=== PATIENT | female | born 1990 | race Caucasian/White ===

== ENCOUNTER 2018-08-06 08:58 | Inpatient (IN) ==
[2018-08-06] MEDS ORDERED: Morphine Sulfate PF Inj 5 MG/10 ML Ampul ONE (09:24)
[2018-08-06] MEDS ORDERED: fentaNYL Citrate Inj 100 MCG/2 ML Ampul ONE (09:24)
[2018-08-06] MEDS ORDERED: Citric Acid/Sodium Citrate Liq 30 ML UDC PO SCH (09:30)
[2018-08-06] MEDS ORDERED: ceFAZolin 2 GM Premix Inj 2 GM/50 ML PIGGYBACK IV.SIG PRN (09:30)
--- NOTE | 2018-08-06 09:47 | P.HPOB ---
History of Present Illness Primary Care Physician: No Primary Care Physician [facility] History of Present Illness: 28 y/o F, at 39wks1, hx of c/s x 2, presents for scheduled repeat c/s. Patient denies any contractions, leakage of fluid, vaginal bleeding. OB history: Uncomplicated , blood type O+, hemoglobin 11.7, last ultrasound 2 weeks agoestimated weight around 6 pounds Previous OB: x1 x1stat for nonreassuring tracing [id number] Med history: None Surgical history: None Meds: vitamins Allergies: None - Inpatient Certification I certify that the inpatient services were ordered in accordance with Medicare regulations governing the order. This includes certification that hospital inpatient services are reasonable and necessary and in the case of services not specified as inpatient-only under 42 CFR 419.22(n), that they are appropriately provided as inpatient services in accordance to with the 2-midnight benchmark under 43 CFR 412.3(e) Estimated Total Length of Stay (Days): 2 Plans for Post Hospital Care: Home Review of Systems All other systems reviewed negative except as stated in HPI PMFSH - Tobacco History Smoking Status: Former smoker Tobacco Type: Cigarettes - Alcohol History How Often Do You Have a Drink Containing Alcohol: Never - Travel History History of Recent Travel: No Medications and Allergies Active Medications: Active Medications Citric Acid/Sodium Citrate (Sodium Citrate/Citric Acid Liq) 30 ml PO [employer] T[employer]OR SLOANE Stop: 08/10/18 09:29 Cefazolin Sodium/Dextrose (Ancef 2 Gm Premix Inj) 2 gm in 50 mls @ 100 mls/hr IV.SIG [employer] TUTOR PRN PRN Reason: surgery Stop: 08/10/18 09:29 Lactated Ringer's (Lr 1000 Ml Inj) 1,000 mls @ 150 mls/hr IV.CONT .Q6H40M SLOANE Lactated Ringer's (Lr 1000 Ml Inj) 1,000 mls @ 2,000 mls/hr IV.SIG .Q30M ONE Stop: 08/06/18 09:59 Allergies Allergy/AdvReac Type Severity Reaction Status Date / Time No Known Allergies Allergy Uncoded 04/06/12 23:28 Exam Vital signs: Vital Signs 08/06/18 09:21 08/06/18 09:34 Temperature 98.7 F Pulse Rate 77 Respiratory Rate 16 Blood Pressure 114/61 Narrative: GENERAL: Well-nourished, well-developed patient. SKIN: Warm and dry. HEAD: Normocephalic and atraumatic. EYES: No scleral icterus. No injection or drainage. ENT: No nasal drainage noted. Mucous membranes pink. Airway patent. NECK: Supple, trachea midline. No JVD. CARDIOVASCULAR: Regular rate and rhythm without murmurs, gallops, or rubs. RESPIRATORY: Breath sounds equal bilaterally. No accessory muscle use. ABDOMEN/GI: Abdomen soft, non-tender, bowel sounds present, no rebound, no guarding Gravid to 40 weeks size Fundal Height: 40 GENITOURINARY: External Genitalia: intact and normal in appearance FHT's: baseline 130, +accels, variable x 2, will continue to monitor Irregular cxns on toco EXTREMITIES: No cyanosis or edema. BACK: Nontender without obvious deformity. No CVA tenderness. NEUROLOGICAL: Awake and alert. Motor and sensory grossly within normal limits. Five out of 5 muscle strength in all muscle groups. Normal speech. Results - Labs CBC & Chem 7: 08/06/18 09:25 Caprini VTE Risk Assessment Caprini VTE Risk Assessment: No/Low Risk (score <= 1) Caprini Risk Assessment Model: Point Value = 1 Point Value = 2 Point Value = 3 Point Value = 5 Age 41-60 Minor surgery BMI > 25 kg/m2 Swollen legs Varicose veins or History of unexplained or recurrent spontaneous Oral contraceptives or hormone replacement Sepsis (< 1 month) Serious lung disease, including pneumonia (< 1 month) Abnormal pulmonary function Acute myocardial infarction Congestive heart failure (< 1 month) History of inflammatory bowel disease Medical patient at bed rest Age 61-74 Arthroscopic surgery Major open surgery (> 45 min) Laparoscopic surgery (> 45 min) Malignancy Confined to bed (> 72 hours) Immobilizing plaster cast Central venous access Age >= 75 History of VTE Family history of VTE Factor V Leiden Prothrombin [id number] Lupus anticoagulant Anticardiolipin antibodies Elevated serum homocysteine Heparin-induced thrombocytopenia Other congenital or acquired thrombophilia Stroke (< 1 month) Elective arthroplasty Hip, pelvis, or leg fracture Acute spinal cord injury (< 1 month) Prophylaxis Regimen: Total Risk Factor Score Risk Level Prophylaxis Regimen 0-1 Low Early ambulation 2 Moderate Order ONE of the following: *Sequential Compression Device (SCD) *Heparin 5000 units SQ BID 3-4 Higher Order ONE of the following medications: *Heparin 5000 units SQ TID *Enoxaparin/Lovenox 40 mg SQ daily (WT < 150 kg, CrCl > 30 mL/min) *Enoxaparin/Lovenox 30 mg SQ daily (WT < 150 kg, CrCl > 10-29 mL/min) *Enoxaparin/Lovenox 30 mg SQ BID (WT < 150 kg, CrCl > 30 mL/min) AND/OR *Sequential Compression Device (SCD) 5 or more Highest Order ONE of the following medications: *Heparin 5000 units SQ TID (Preferred with Epidurals) *Enoxaparin/Lovenox 40 mg SQ daily (WT < 150 kg, CrCl > 30 mL/min) *Enoxaparin/Lovenox 30 mg SQ daily (WT < 150 kg, CrCl > 10-29 mL/min) *Enoxaparin/Lovenox 30 mg SQ BID (WT < 150 kg, CrCl > 30 mL/min) AND *Sequential Compression Device (SCD) Assessment and Plan - Diagnosis (1) 39 weeks gestation of Code(s): Z3A.39 - 39 weeks gestation of Status: Acute Plan: 28 y/o F, at 39wks1, hx of c/s x 2, presents for scheduled repeat c/s. -Hemoglobin 11.7 -Preoperative orders entered -Tracing reviewed, will continue to monitor -N.p.o. -preop Ancef 2g (2) Previous delivery affecting Code(s): O34.219 - Maternal care for unspecified type scar from previous delivery Status: Acute
[2018-08-06 09:50] LABS: Baso % (Auto) 0.2 % (0.0-2.0); Eos # (Auto) 0.1 th/mm3 (0.0-0.4); Eos % (Auto) 0.5 % (0.0-4.0); Hemoglobin 12.5 gm/dL (11.6-15.3); Lymph # (Auto) 2.9 th/mm3 (1.0-4.8); Lymph % (Auto) 24.8 % (9.0-44.0); Mean Corpuscular Hemoglobin 34.7 pg (27.0-34.0); Mean Corpuscular Volume 94.4 fL (80.0-100.0); Mean Platelet Volume 8.6 fL (7.0-11.0); Mono # (Auto) 0.8 th/mm3 (0.0-0.9); Mono % (Auto) 6.6 % (0.0-8.0); Neut % (Auto) 67.9 % (16.0-70.0); Platelet Count 270 th/mm3 (150-450); Red Cell Distribution Width 13.4 % (11.6-17.2); White Blood Count 11.7 th/mm3 (4.0-11.0)
[2018-08-06 09:59] LABS: Mean Corpuscular HGB Conc 36.8 % (32.0-36.0)
[2018-08-06 10:02] LABS: Bacteria,Urine Rare /hpf; Bilirubin,Urine Negative (Negative); Clarity,Urine Clear (Clear); Color,Urine Straw (Yellw/Straw); Glucose,Urine (UA) Negative (Negative); Leukocyte Esterase,Urine Negative (Negative); Nitrite,Urine Negative (Negative); Specific Gravity,Urine 1.004 (1.002-1.035)
[2018-08-06 10:06] LABS: Amphetamine Screen,Urine Neg (Neg); Barbiturate Screen,Urine Neg (Neg); Cannabinoid Screen,Urine Pos (Neg); Cocaine Screen,Urine Neg (Neg)
[2018-08-06 10:07] LABS: Opiate Screen,Urine Neg (Neg)
[2018-08-06 11:13] LABS: Eosinophils 1 % (0-4); Lymphocytes 23 % (9-44); Monocytes 2 % (0-8); Platelet Estimate Normal (Normal); Platelet Morphology Normal (Normal); Promyelocyte 1 % (0-0)
[2018-08-06] MEDS ORDERED: Acetaminophen 325 MG Tablet PO PRN (11:54)
[2018-08-06] MEDS ORDERED: Oxytocin 30 Units/500ml Premix 30 UNITS/500 ML BAG IV.SIG ONE (11:54)
[2018-08-06] MEDS ORDERED: Oxytocin 30 Units/500ml Premix 30 UNITS/500 ML BAG ONE (13:00)
--- NOTE | 2018-08-06 13:00 | P.OP ---
- Preoperative Diagnosis (1) 39 weeks gestation of (2) Previous delivery affecting - Postoperative Diagnosis (1) 39 weeks gestation of (2) Previous delivery affecting Date of procedure: 08/06/18 Procedure: Lower uterine segment transverse section repeat Anesthesia: spinal Surgeon: Viviane Araiza MD Estimated blood loss (mL): 500 Operation and Findings: Patient counseled on alternatives benefits complications including but not limited to permanent injury of the bowel bladder nerve blood vessel ureters any structures in the abdomen pelvis infection hemorrhage morbidity mortality related surgery under anesthesia related procedures even remote possibility of risk of injury patient expressed verbal understanding. Patient requested a silvia Intra-Op discussed with patient the complications associated and she agrees and decided to defer. Subsequently patient was taken to the OR after informed consent obtained timeout was called preop antibiotics given spinal analgesia was placed which was found to be adequate prepped and draped in normal sterile fashion . Pfannenstiel skin incision was made through the previous incision carried down to the underlying layer of fascia which was incised in the midline dissected laterally digitally superior S of the fascia was grasped to Ramana clamps x2 dissected off from the underlying rectus muscle sharply with curved Hernandez scissors the same was performed to the inferior aspect of the fascia with care to avoid the bladder. Rectus muscle attempt to separate noted to be densely fused subsequently identified with a hemostat and through the midline the rectus muscle proceeded superiorly with Metzenbaum scissors with care to avoid the vasculature once entered entry into the peritoneum with care to avoid the bladder. The vesicouterine peritoneum was noted to be densely adherent to the lower uterine segment which was carefully dissected sharply with Metzenbaum scissors and pickups. A transverse incision was made on the uterus extended laterally digitally amniotomy clear fluid noted. A viable infant male was delivered 6 pounds 12 ounces Apgars 9 9 without incident. Delayed cord clamping. Please note one the vertex was delivered and nares involved were bulb suctioned and delivered the remainder of the body. Infant was handed to awaiting neonatology team. The cord blood was collected. The placenta was manually removed. Uterus was externalized cleared of all clot and debris. Uterine incision was closed with 1 chromic in a running locked fashion followed by second imbricating Lembert suture. Bilateral adnexa noted to be within normal the paracolic gutters were cleared of all clot and debris the uterus was repositioned the pelvic abdominal cavity. With the assistance of a bladder blade the incision was reevaluated minimal points of bleeding noted where the adhesions had been lysed and subsequently controlled with Bovie pencil. Once hemostasis was assured all instrumentation removed for soft count was noted to be correct. The fascia was closed with 1 PDS in a continuous fashion. Subcutaneous bleeding was noted to be minimal controlled Bovie pencil. The skin was closed with Monocryl on a Keenan needle. Patient tolerated procedure well sponge lap needle counts correct x2 patient baby and mother in stable condition.
[2018-08-06] MEDS ORDERED: Naloxone Inj 0.4 MG/ML Vial IV.PUSH PRN (13:55)
[2018-08-06] MEDS: Ketorolac Inj 30 MG/ML (IVP) Vial IV.PUSH PRN (15:48)
[2018-08-06] MEDS ORDERED: Oxytocin 30 Units/500ml Premix 30 UNITS/500 ML BAG IV.SIG PRN (16:55)
[2018-08-06] MEDS ORDERED: HYDROmorphone PF Inj 2 MG/ML Vial IV.PUSH PRN (19:17)
[2018-08-07] MEDS: Ketorolac Inj 30 MG/ML (IVP) Vial IV.PUSH PRN (04:22)
[2018-08-07 06:25] LABS: Baso % (Auto) 0.2 % (0.0-2.0); Eos % (Auto) 0.1 % (0.0-4.0); Hematocrit 35.2 % (35.0-46.0); Hemoglobin 11.8 gm/dL (11.6-15.3); Lymph # (Auto) 2.4 th/mm3 (1.0-4.8); Lymph % (Auto) 15.8 % (9.0-44.0); Mean Corpuscular HGB Conc 33.6 % (32.0-36.0); Mean Corpuscular Hemoglobin 32.4 pg (27.0-34.0); Mean Corpuscular Volume 96.4 fL (80.0-100.0); Mean Platelet Volume 8.6 fL (7.0-11.0); Mono # (Auto) 0.8 th/mm3 (0.0-0.9); Mono % (Auto) 5.5 % (0.0-8.0); Neut # (Auto) 11.9 th/mm3 (1.8-7.7); Neut % (Auto) 78.4 % (16.0-70.0); Platelet Count 277 th/mm3 (150-450); Red Blood Count 3.65 mil/mm3 (4.00-5.30); Red Cell Distribution Width 13.8 % (11.6-17.2); White Blood Count 15.1 th/mm3 (4.0-11.0)
--- NOTE | 2018-08-07 09:42 | P.PNOB ---
Subjective Post op day: 1 Interval history: Patient is a 28-year-old G 4 P 4 delivered at 39 weeks and 1 days. Patient is postop day 1 after repeat section. Patient's pain is well-controlled. Patient reports eating and drinking without any nausea or vomiting. Patient reports minimal bleeding. She reports mild right-sided incisional pain. Patient has not passed gas or bowel movements. Patient is walking without lower extremity pain or shortness of breath. Patient is bottle feeding. Objective Vital Signs/I&O: Vital Signs 08/06/18 12:00 08/06/18 12:15 08/06/18 12:30 Temperature 97.7 F Pulse Rate 66 64 61 Respiratory Rate 16 16 16 Blood Pressure 106/55 L 107/55 L 101/55 L 08/06/18 12:45 08/06/18 13:00 08/06/18 13:58 Temperature 97.5 F L Pulse Rate 54 L 49 L 51 L Respiratory Rate 16 16 18 Blood Pressure 96/57 L 100/63 110/63 08/06/18 20:00 08/06/18 23:55 08/07/18 04:00 Temperature 98.2 F 97.6 F 98.1 F Pulse Rate 50 L 60 56 L Respiratory Rate 18 17 17 Blood Pressure 103/69 97/64 L 88/55 L 08/07/18 08:00 Temperature 98.0 F Pulse Rate 72 Respiratory Rate 20 Blood Pressure 92/56 L Intake & Output 08/06/18 08/07/18 08/07/18 18:59 06:59 18:59 Weight 68.039 kg Other: Weight On Admission 68.039 kg Result Diagrams: 08/07/18 06:00 Objective Remarks: GENERAL: Well-nourished, well-developed patient. CARDIOVASCULAR: Regular rate and rhythm without murmurs, gallops, or rubs. RESPIRATORY: Breath sounds equal bilaterally. No accessory muscle use. ABDOMEN/GI: Abdomen soft, non-tender, bowel sounds present. Incision: Pressure dressing intact, clean, dry Fundus: Firm, non-tender at umbilicus. GENITOURINARY: Light to moderate bleeding. EXTREMITIES: No cyanosis or edema, non-tender, without signs of DVT. Medications and IVs: Active Medications Acetaminophen (Tylenol) 650 mg PO Q6H PRN PRN Reason: PAIN SCALE 1 TO 2 Citric Acid/Sodium Citrate (Sodium Citrate/Citric Acid Liq) 30 ml PO PIPE [employer]TER HELPER [facility] Stop: 08/10/18 09:29 Last Admin: 08/06/18 10:11 Dose: 30 ml Diphenhydramine HCl (Benadryl) 50 mg PO Q6H PRN PRN Reason: MILD TO MODERATE ITCHING Stop: 08/07/18 11:05 Diphenhydramine HCl (Benadryl Inj) 25 mg IV.PUSH Q6H PRN PRN Reason: MILD TO MODERATE ITCHING Stop: 08/07/18 11:05 Diphtheria/Pertussis/Tetanus Vacc (Boostrix Vaccine Inj) 0.5 ml IM .ONCE ONE Stop: 08/07/18 16:01 Hydromorphone HCl (Dilaudid Pf Inj) 2 mg IV.PUSH Q3H PRN PRN Reason: PAIN 6-10 IF NOT SHERICE PO MEDS Last Admin: 08/06/18 19:36 Dose: 2 mg Cefazolin Sodium/Dextrose (Ancef 2 Gm Premix Inj) 2 gm in 50 mls @ 100 mls/hr IV.SIG PIPE [employer]TER HELPER PRN PRN Reason: surgery Stop: 08/10/18 09:29 Last Admin: 08/06/18 10:10 Dose: 100 mls/hr Lactated Ringer's (Lr 1000 Ml Inj) 1,000 mls @ 150 mls/hr IV.CONT .Q6H40M [facility] Last Admin: 08/06/18 10:11 Dose: 150 mls/hr Lactated Ringer's (Lr 1000 Ml Inj) 1,000 mls @ 100 mls/hr IV.CONT .Q10H [facility] Stop: 08/07/18 12:54 Oxytocin (Pitocin 30 Units/Ns 500 Ml Premix) 30 units in 500 mls @ 100 mls/hr IV.SIG UNSCH PRN PRN Reason: Heavy bleeding Ibuprofen (Motrin) 800 mg PO Q8H PRN PRN Reason: cramping Ketorolac Tromethamine (Toradol Inj) 30 mg IV.PUSH Q6H PRN PRN Reason: ABDOMINAL PAIN Stop: 08/08/18 15:27 Last Admin: 08/07/18 04:22 Dose: 30 mg Measles/Mumps/Rubella Vaccine Live (M-M-R Ii Vaccine Inj) 0.5 ml SQ .ONCE ONE Stop: 08/07/18 16:01 Miscellaneous Information ([facility] Nursing Information) 1 each OTHER UNSCH PRN PRN Reason: SEE LABEL COMMENTS Stop: 08/07/18 11:05 Miscellaneous Information ([facility] Nursing Information) 1 each OTHER UNSCH PRN PRN Reason: SEE LABEL COMMENTS Stop: 08/07/18 11:05 Naloxone HCl (Narcan Inj) 0.4 mg IV.PUSH UNSCH PRN PRN Reason: SEE LABEL COMMENTS Stop: 08/07/18 11:05 Ondansetron HCl (Zofran Inj) 4 mg IV.PUSH Q6H PRN PRN Reason: NAUSEA OR VOMITING Last Admin: 08/06/18 16:21 Dose: 4 mg Oxycodone/Acetaminophen (Percocet 5/325 Mg) 1 tab PO Q4H PRN PRN Reason: PAIN SCALE 3 TO 5 Oxycodone/Acetaminophen (Percocet 5/325 Mg) 2 tab PO Q4H PRN PRN Reason: PAIN SCALE 6 TO 10 Last Admin: 08/07/18 08:28 Dose: 2 tab Promethazine HCl (Phenergan Inj) 25 mg IM Q4H PRN PRN Reason: NAUSEA OR VOMITING Last Admin: 08/06/18 19:37 Dose: 25 mg Senna/Docusate Sodium (Ceci-Colace) 2 tab PO Q12H PRN PRN Reason: CONSTIPATION Sodium Chloride (Ns Flush) 2 ml IV.FLUSH BID SLOANE Last Admin: 08/07/18 08:29 Dose: Not Given Sodium Chloride (Ns Flush) 2 ml IV.FLUSH PRN PRN PRN Reason: FLUSH AFTER USING IV ACCESS Assessment and Plan - Diagnosis (1) Normal course Code(s): Z39.2 - Encounter for routine follow-up Status: Acute - Plan Patient is a 28-year-old delivered at 39 weeks and 1 days. Patient is postop day 1 after repeat section. Patient was counseled to do 6 weeks of pelvic rest. Patient was counseled to follow up in 6 weeks. Patient is bottle feeding. --AF VSS --Continue routine care --Colace for bowel regimen --Motrin and Percocet when necessary for pain --Encourage OOB --Pelvic rest for 6 weeks will need follow-up appointment at that time. --Anticipate discharge Thursday
[2018-08-07] MEDS: Senna/Docusate Sodium 8.6/50 MG Tablet PO PRN (12:55)
[2018-08-07] MEDS ORDERED: Diphtheria/Tetanus/Pertussis Vaccine Inj 0.5 ML Syringe IM ONE (16:00)
[2018-08-07] MEDS ORDERED: Measles/Mumps/Rubella Vaccine Inj 0.5 ML Vial SQ ONE (16:00)
[2018-08-08] MEDS: Senna/Docusate Sodium 8.6/50 MG Tablet PO PRN (02:39)
--- NOTE | 2018-08-08 08:25 | P.PNOB ---
Subjective Post op day: 2 Interval history: Patient is a 28-year-old G 4 P 4 delivered at 39 weeks and 1 days. Patient is postop day 2 after repeat section. Patient's pain is well-controlled. Patient reports eating and drinking without any nausea or vomiting. Patient reports minimal bleeding. She reports mild right-sided incisional pain. Patient has passed gas and a bowel movement. Patient is walking without lower extremity pain or shortness of breath. Patient is bottle feeding. Objective Vital Signs/I&O: Vital Signs 08/07/18 11:56 08/07/18 20:00 08/08/18 07:40 Temperature 98.0 F 98.3 F 98.0 F Pulse Rate 63 65 58 L Respiratory Rate 18 16 Blood Pressure 106/63 99/60 L 93/60 L Result Diagrams: 08/07/18 06:00 Objective Remarks: GENERAL: Well-nourished, well-developed patient. CARDIOVASCULAR: Regular rate and rhythm without murmurs, gallops, or rubs. RESPIRATORY: Breath sounds equal bilaterally. No accessory muscle use. ABDOMEN/GI: Abdomen soft, non-tender, bowel sounds present. Incision: Clean, dry and intact. Fundus: Firm, non-tender at umbilicus. GENITOURINARY: Light to moderate bleeding. EXTREMITIES: No cyanosis or edema, non-tender, without signs of DVT. Medications and IVs: Active Medications Acetaminophen (Tylenol) 650 mg PO Q6H PRN PRN Reason: PAIN SCALE 1 TO 2 Citric Acid/Sodium Citrate (Sodium Citrate/Citric Acid Liq) 30 ml PO HAM PASSER SLOANE Stop: 08/10/18 09:29 Last Admin: 08/06/18 10:11 Dose: 30 ml Hydromorphone HCl (Dilaudid Pf Inj) 2 mg IV.PUSH Q3H PRN PRN Reason: PAIN 6-10 IF NOT SHERICE PO MEDS Last Admin: 08/06/18 19:36 Dose: 2 mg Cefazolin Sodium/Dextrose (Ancef 2 Gm Premix Inj) 2 gm in 50 mls @ 100 mls/hr IV.SIG HAM PASSER PRN PRN Reason: surgery Stop: 08/10/18 09:29 Last Admin: 08/06/18 10:10 Dose: 100 mls/hr Lactated Ringer's (Lr 1000 Ml Inj) 1,000 mls @ 150 mls/hr IV.CONT .Q6H40M [facility] Last Admin: 08/06/18 10:11 Dose: 150 mls/hr Oxytocin (Pitocin 30 Units/Ns 500 Ml Premix) 30 units in 500 mls @ 100 mls/hr IV.SIG UNSCH PRN PRN Reason: Heavy bleeding Ibuprofen (Motrin) 800 mg PO Q8H PRN PRN Reason: cramping Last Admin: 08/08/18 05:07 Dose: 800 mg Ketorolac Tromethamine (Toradol Inj) 30 mg IV.PUSH Q6H PRN PRN Reason: ABDOMINAL PAIN Stop: 08/08/18 15:27 Last Admin: 08/07/18 04:22 Dose: 30 mg Ondansetron HCl (Zofran Inj) 4 mg IV.PUSH Q6H PRN PRN Reason: NAUSEA OR VOMITING Last Admin: 08/06/18 16:21 Dose: 4 mg Oxycodone/Acetaminophen (Percocet 5/325 Mg) 1 tab PO Q4H PRN PRN Reason: PAIN SCALE 3 TO 5 Oxycodone/Acetaminophen (Percocet 5/325 Mg) 2 tab PO Q4H PRN PRN Reason: PAIN SCALE 6 TO 10 Last Admin: 08/08/18 06:32 Dose: 2 tab Promethazine HCl (Phenergan Inj) 25 mg IM Q4H PRN PRN Reason: NAUSEA OR VOMITING Last Admin: 08/06/18 19:37 Dose: 25 mg Senna/Docusate Sodium (Ceci-Colace) 2 tab PO Q12H PRN PRN Reason: CONSTIPATION Last Admin: 08/08/18 02:39 Dose: 2 tab Sodium Chloride (Ns Flush) 2 ml IV.FLUSH BID [facility] Last Admin: 08/07/18 21:00 Dose: Not Given Sodium Chloride (Ns Flush) 2 ml IV.FLUSH PRN PRN PRN Reason: FLUSH AFTER USING IV ACCESS Assessment and Plan - Diagnosis (1) Normal course Code(s): Z39.2 - Encounter for routine follow-up Status: Acute - Plan Patient is a 28-year-old delivered at 39 weeks and 1 days. Patient is postop day 2 after repeat section. Patient was counseled to do 6 weeks of pelvic rest. Patient is bottle feeding. --AF VSS --Continue routine care --Colace for bowel regimen --Motrin and Percocet when necessary for pain. --Encourage OOB --Patient will follow up for incision check in 1 week --Pelvic rest for 6 weeks will need follow-up appointment at that time. --Anticipate discharge today [employer] and no anomalies noted - Attending Attestation The exam, history, and the medical decision-making described in the above note were completed with the assistance of the resident physician. I reviewed and agree with the findings presented. I attest that I had a [id number] encounter with the patient on the same day, and personally performed and documented my assessment and findings in the medical record.
== END 2018-08-08 13:15 | disposition home or self-care (01) ==
LOC: H2E 08:58 → H1EA 13:17
PROVIDERS: ADMIT Obstetrics & Gynecology; ATTEND Obstetrics & Gynecology